=== PATIENT | female | born 1955 | race Caucasian/White ===

== ENCOUNTER → 2018-07-15 07:56 | Outpatient (CLI) | payer SELFPAY ==
--- NOTE | 2018-07-15 08:04 | BI_ITS ---
MAMMOGRAPHY - BILATERAL SCREENING 3-D TOMOSYNTHESIS REASON FOR EXAM: Female, 63 years old. Bilateral Screening 3-D tomosynthesis PERTINENT HISTORY: No significant family history. TECHNIQUE: 2-D mammograms and 3-D Tomosynthesis of the breast (s) were performed. CAD was performed. COMPARISON: 2017 FINDINGS: The breast composition is composed of scattered fibroglandular density. Scattered benign calcifications are seen. No dense spiculated masses or suspicious microcalcifications are identified. No architectural distortion is identified. There is no skin thickening or retraction. There has been no significant change since the prior study. BI/SCREENING MAMM (CAD), BILAT IMPRESSION: No mammographic signs of malignancy. Routine yearly mammograms recommended. ASSESSMENT CATEGORY: BIRADS Category 2: Benign. A letter regarding these results will be sent to the patient by the facility within 30 days. FOLLOW UP RECOMMENDATION: Yearly follow up mammogram recommended. (A) Approximately 10% of breast cancers are not detected by mammography. A normal mammogram should not delay biopsy of a clinically suspicious abnormality. Electronically Signed: Nnamdi Monzon MD at 8:59 EDT , Service support ,
== END ==
PROVIDERS: Family Provider Nurse Practitioner Family; PCP Nurse Practitioner Family; Referring Provider Nurse Practitioner Family; Visit Provider Nurse Practitioner Family
DX: Z12.31 Encounter for screening mammogram for malignant neoplasm of breast (principal)
CPT/HCPCS: 77063; 77067

== ENCOUNTER → 2022-10-09 | Outpatient (CLI) | payer MEDICARE, OTHER, SELFPAY ==
--- NOTE | 2022-10-09 07:59 | BI_ITS ---
MAMMOGRAPHY - BILATERAL SCREENING 3-D TOMOSYNTHESIS REASON FOR EXAM: Female, 67 years old. Routine screening PERTINENT HISTORY: No significant family history. TECHNIQUE: 2-D mammograms and 3-D Tomosynthesis of the breast (s) were performed. CAD was performed. COMPARISON: 2017 FINDINGS: The breast composition is composed of scattered fibroglandular density. Scattered benign punctate calcifications are seen. No dense spiculated masses or suspicious microcalcifications are identified. No architectural distortion is identified. There is no skin thickening or retraction. There has been no significant change since the prior study. BI/SCRN MAMM (CAD)W/ELIZABETH BILAT IMPRESSION: No mammographic signs of malignancy. Routine yearly mammograms recommended. ASSESSMENT CATEGORY: BIRADS Category 1: Negative. A letter regarding these results will be sent to the patient by the facility within 30 days. FOLLOW UP RECOMMENDATION: Yearly follow up mammogram recommended. (A) Approximately 10% of breast cancers are not detected by mammography. A normal mammogram should not delay biopsy of a clinically suspicious abnormality. Electronically Signed: Nnamdi Monzon MD at 9:02 EDT ,
== END | disposition home or self-care (01) ==
LOC: OPBI 07:57
PROVIDERS: PCP Nurse Practitioner Family; Referring Provider Nurse Practitioner Family; Visit Provider Nurse Practitioner Family
DX: Z12.31 Encounter for screening mammogram for malignant neoplasm of breast (principal)
CPT/HCPCS: 77063; 77067

== ENCOUNTER → 2022-12-24 | Outpatient (CLI) | payer MEDICARE, OTHER, SELFPAY ==
[2022-12-24 13:28] LABS: Thyroid Stim Hormone (TSH) 0.81 uIU/mL (0.358-3.74)
== END | disposition home or self-care (01) ==
LOC: LAB 12:01
PROVIDERS: PCP Nurse Practitioner Family; Referring Provider Internal Medicine Cardiovascular Disease; Visit Provider Internal Medicine Cardiovascular Disease
DX: E78.5 Hyperlipidemia, unspecified (principal)
CPT/HCPCS: 36415; 84443

== ENCOUNTER → 2023-01-04 | Outpatient (CLI) | payer MEDICARE, OTHER, SELFPAY | END | disposition home or self-care (01) | LOC: PSN 09:51 | PROVIDERS: PCP Nurse Practitioner Family; Referring Provider Internal Medicine Cardiovascular Disease; Visit Provider Internal Medicine Cardiovascular Disease | DX: I49.1 Atrial premature depolarization (principal); I07.1 Rheumatic tricuspid insufficiency; I34.0 Nonrheumatic mitral (valve) insufficiency; I10 Essential (primary) hypertension | CPT/HCPCS: 93225; 93226 ==

== ENCOUNTER → 2023-01-13 | Outpatient (CLI) | payer MEDICARE, OTHER, SELFPAY ==
--- NOTE | 2023-01-13 06:54 | ECHOD_ITS ---
Reason For Study: NON RHEUMATIC MITRAL VALVE INSUFFIENCY Procedure This was a 2D Doppler, Color Flow transthoracic echocardiogram. Exam performed in department. Left Ventricle Normal size and thickness. The left ventricular ejection fraction is 65 %. Normal diastology for age. Right Ventricle Normal right ventricle. Atria The left and right atria are normal. Mitral Valve Trivial mitral valve insufficiency. Tricuspid Valve Trivial tricuspid valve insufficiency. Normal pulmonary artery pressure. Aortic Valve Trisinus/trileaflet aortic valve. Trivial aortic valve insufficiency. Pulmonic Valve The pulmonic valve is not well visualized. Great Vessels Normal sized aortic root. Pericardium/Pleural No pericardial effusion. MMode/2D Measurements & Calculations LVIDd: 4.7 cm IVSd: 0.82 cm Ao root diam: 3.1 cm LVIDs: 3.1 cm LVPWd: 0.83 cm RVDd: 3.3 cm FS: 33.3 % LAV(MOD-bp): 52.0 ml LVAd ap4: 28.3 cm2 LVAd ap2: 16.6 cm2 LAV(MOD-bp) Indexed: 27.8 ml/m2 LVLd ap4: 7.5 cm LVLd ap2: 6.2 cm LAV(MOD-sp2): 52.1 ml EDV(MOD-sp4): 87.5 ml EDV(MOD-sp2): 36.0 ml LAV(MOD-sp4): 52.4 ml EDV(sp4-el): 90.7 ml EDV(sp2-el): 37.7 ml LVAs ap4: 14.4 cm2 LVAs ap2: 9.1 cm2 LVLs ap4: 6.4 cm LVLs ap2: 5.7 cm ESV(MOD-sp4): 29.0 ml ESV(MOD-sp2): 13.5 ml ESV(sp4-el): 27.8 ml ESV(sp2-el): 12.4 ml EF(MOD-sp4): 66.8 % EF(MOD-sp2): 62.5 % EF(sp4-el): 69.4 % SV(MOD-sp4): 58.4 ml SV(MOD-sp2): 22.5 ml SV(sp4-el): 63.0 ml LA dimension(2D): 4.0 cm LA A4 area: 19.8 cm2 RA A4 area: 14.4 cm2 TAPSE: 1.7 cm Time Measurements MV dec time: 0.25 sec Doppler Measurements & Calculations MV E max trey: 81.5 cm/sec Lat Peak E' Trey: 11.7 cm/sec Med Peak E' Trey: 10.9 cm/sec MV A max trey: 82.3 cm/sec E/E' lat: 7.0 E/E' med: 7.4 MV E/A: 0.99 MV V2 max: 106.6 cm/sec MV P1/2t max trey: 97.9 cm/sec Ao V2 max: 201.4 cm/sec MV max P.5 mmHg MV P1/2t: 75.6 msec Ao max P.4 mmHg MV V2 mean: 59.1 cm/sec MV dec slope: 379.5 cm/sec2 Ao V2 mean: 147.1 cm/sec MV mean P.7 mmHg Ao mean P.7 mmHg MV V2 VTI: 30.8 cm MVA(P1/2t): 2.9 cm2 Ao V2 VTI: 46.7 cm AV (velocity ratio): 0.55 LV V1 max: 122.0 cm/sec PA V2 max: 111.2 cm/sec TR max trey: 215.2 cm/sec LV V1 max P.1 mmHg PA V2 mean: 80.1 cm/sec TR max P.5 mmHg LV V1 mean P.6 mmHg LV V1 mean: 90.6 cm/sec LV V1 VTI: 25.8 cm ECHO/Echo Complete Interpretation Summary The left ventricular ejection fraction is 65 %. Ordering Physician: Ning Yates Referring Physician: Ward Anders Performed By: Mary Wellington, LAURYNCS, RVT
--- NOTE | 2023-01-13 12:58 | STRESSREP_ITS ---
Stress Test Report Date: 01/13/2023 Procedure: Pharmacologic stress nuclear imaging study Indications: Arrhythmia Consent: Per the patient Procedure: The patient underwent pharmacologic (Regadenoson 0.4mg ) evaluation with a peak heart rate of 106 beats per minute (68%predicted maximal heart rate) and a peak blood pressure of 132/92 mmHg. The baseline ECG demonstrated sinus rhythm. The peak pharmacologic ECG demonstrated no ischemic changes. PACs noted at rest as well as during infusion. There was no complaint of chest discomfort during pharmacologic infusion or recovery. The patient was injected with 14.2 millicuries of technetium 99m Cardiolite and subsequently rest SPECT Cardiolite nuclear imaging was obtained in the horizontal long, vertical long, and short axis views. The patient underwent pharmacologic (Regadenoson) evaluation. The patient was injected with 45.0 millicuries of technetium 99m Cardiolite and subsequently stress SPECT Cardiolite nuclear imaging was obtained in the horizontal long, vertical long, and short axis views. A gated Cardiolite study at peak stress was obtained. The examination was stopped secondary to completion of protocol. Rest and stress SPECT Cardiolite nuclear imaging status post realignment, normalization, and attenuation correction demonstrate no fixed or reversible perfusion defect. There is end systolic thickening and brightening. The gated Cardiolite study demonstrates myocardial thickening and inward wall motion. The reported LVEF is 84%. Impression: 1. Pharmacologic (Regadenoson) evaluation 2. Peak pharmacologic ECG with no ischemic changes. 3. PACs noted at rest as well as during and after infusion. 5. Rest and stress SPECT Cardiolite nuclear imaging demonstrate relative uniform tracer uptake and myocardial perfusion appearing within normal limits. 6. The gated Cardiolite study reports an LVEF of 84%. This note was generated with [employer] software. It may contain incorrect words, spelling, and punctuation that were not noted in checking the note before signing.
== END | disposition home or self-care (01) ==
LOC: CVS 06:54
PROVIDERS: PCP Nurse Practitioner Family; Referring Provider Internal Medicine Cardiovascular Disease; Visit Provider Internal Medicine Cardiovascular Disease
DX: R94.31 Abnormal electrocardiogram [ECG] [EKG] (principal); I34.0 Nonrheumatic mitral (valve) insufficiency
CPT/HCPCS: 78452; 93017; 93306; A9500; A4216; J2785

== ENCOUNTER 2023-04-08 17:10 | Emergency (ER) | payer MEDICARE, OTHER, SELFPAY ==
[2023-04-08 17:11] VITALS: BP 145/87; PULSE 61; RESP 20; TEMP 35.9; O2SAT 98; BMI 37.1
--- OUTSIDE RECORDS SUMMARY | 2023-04-08 18:12 | XMS RPT_ITS | CCD ---
Author Name Unknown Address [facility]ly [facility] [place] [address] Organization [facility] Care Team Providers Care Private Sector Executive Name Role Phone ZO PAUL APRN, CNP Primary Care [facility] ZO PAUL APRN, CNP Attending U navailable MERY CARRASCO - HAKEEM, ZO Garibay Primary Care U navailable MERY CARRASCO - HAKE[place], ZO Garibay Attending U navailable MERY CARRASCO - HAKEEM, ZO Garibay Primary Care U navailable MERY LUNA - HAKEEM, ZO Garibay Attending U navailable MERY CARRASCO - HAKEEM, ZO Garibay Primary Care U navailable Medications Current Medications Medication Drug Class(es) Dates Sig (Normalized) Sig (Original) Calcium, Magnesium and Zinc oral tablet (3 sources) Start: 02-02-2019 take 1 tablet by mouth once daily Calcium, Magnesium and Zinc oral tablet Dose = 1 tab(s), Oral, qDay, # 30 tab(s), 0 Refill(s) Start Date: 02/02/19 Status: Ordered latanoprost 0.05 mg/ml ophthalmic solution (4 sources) Prostaglandin Analog Start: 05-23-2021 latanoprost 0.005% ophthalmic solution 0 Refill(s) Start Date: 05/23/21 Status: Ordered 12 hr timolol 5 mg/ml ophthalmic solution (5 sources) beta-Adrenergic Srinivasan Start: 02-02-2019 take 1 dose into the eye(s) twice daily timolol maleate 0.5% ophthalmic solution Dose = 1 drop(s), Eyes, both, BID, # 15 mL, 0 Refill(s) Start Date: 02/02/19 Status: Ordered Completed/Discontinued Medications Medication Drug Class(es) Dates Sig (Normalized) Sig (Original) ergocalciferol 1.25 mg oral capsule (5 sources) Provitamin D2 Compound Start: 06-02-2022 End: 11-29-2022 ergocalciferol 50,000 intl units (1.25 mg) oral capsule Dose : 50,000 International_Unit = 1 cap(s), Oral, qWeek, # 13 cap(s), 1 Refill(s), Pharmacy: [id number], Vitamin D deficiency, 151.5, cm, 06/02/22 8:31:00 EDT, Height, kg, 06/02/22 8:31:00 EDT, Dosing Weight Start Date: 06/02/22 Stop Date: 11/29/22 Status: Ordered Problems Active Problems Problem Classification Problem Date Documented Da te Episodic/Chronic Cardiac dysrhythmias (5 sources) Sinus bradycardia 11-15-2020 Episodic Diabetes mellitus without complication (7 sources) Impaired fasting glycemia; Translations: [Impaired fasting glucose] Onset: 05-21-2022 01-30-2019 Episodic Disorders of lipid metabolism (7 sources) Hyperlipidemia; Translations: [Hyperlipidemia, unspecified] Onset: 05-21-2022 02-02-2019 Chronic Essential hypertension (7 sources) Hypertensive disorder; Translations: [Essential (primary) hypertension] Onset: 11-13-2021 02-02-2019 Chronic Heart valve disorders (10 sources) Mitral valve regurgitation; Translations: [Tricuspid valve regurgitation] 11-15-2020 Chronic Malaise and fatigue (5 sources) Fatigue 01-30-2019 Episodic Nutritional deficiencies (7 sources) Vitamin D deficiency; Translations: [Vitamin D deficiency, unspecified] Onset: 11-13-2021 01-30-2019 Chronic Other bone disease and musculoskeletal deformities (1 source) Osteopenia 10-06-2022 Episodic Past or Other Problems Problem Classification Problem Date Documented Da te Episodic/Chronic Nutritional deficiencies (2 sources) Other specified nutritional deficiencies; Translations: [Other specified nutritional deficiencies] Onset: 05-21-2022 Episodic Results Test Name Value Interpretation Reference Range Facil ity Encounters Encounter Date Encounter Type Care Provider Facility Start: 12-03-2022 End: 12-07-2022 Outreach Lab OZ ORDONEZ GARMENT FOLDER - PELLETISING EXTRUDER OPERATOR [facility] Start: 10-05-2022 End: 10-06-2022 ambulatory ZO ORDONEZ GARMENT FOLDER - PELLETISING EXTRUDER OPERATOR Facility:[facility] Start: 10-05-2022 End: 10-05-2022 Patient encounter procedure ZO ORDONEZ GARMENT FOLDER - PELLETISING EXTRUDER OPERATOR [facility] Start: 05-21-2022 End: 05-26-2022 ambulatory ZO ORDONEZ GARMENT FOLDER - PELLETISING EXTRUDER OPERATOR Facility:[facility] Start: 05-21-2022 End: 05-25-2022 Outreach Lab ZO ORDONEZ GARMENT FOLDER - PELLETISING EXTRUDER OPERATOR [facility] Start: 11-13-2021 End: 11-18-2021 ambulatory ZO ORDONEZ GARMENT FOLDER - PELLETISING EXTRUDER OPERATOR Facility:[facility] Start: 11-13-2021 End: 11-17-2021 Outreach Lab ZO ORDONEZ GARMENT FOLDER - PELLETISING EXTRUDER OPERATOR [facility] Start: 05-15-2021 End: 05-19-2021 Outreach Lab ZO ORDONEZ GARMENT FOLDER - PELLETISING EXTRUDER OPERATOR [facility] Procedures Date Procedure Procedure Detail Performing Clinician Start: 03-22-1979 Cholecystectomy ZO ORDONEZ GARMENT FOLDER - PELLETISING EXTRUDER OPERATOR Payers Date Payer Category Payer Medicare [id number] 2022 Unknown [id number] 2021 Self-pay 1955 Unknown [id number] 1955 Unknown [id number] 1955 Unknown [id number] Social History Date Type Detail Facility Start: 01-30-2019 Never smoked t obacco (finding) [facility] Sex Assigned At Female [facility] Clinical Note 10-05-2022 Note Date & Type Note Facility 10-05-2022 Note ORIGINAL EXAMINATION: BONE DENSITOMETRY 10/05/2022 12:09 pm TECHNIQUE: A bone density dual x-ray absorptiometry (DEXA) scan was performed of the lumbar spine and left hip. COMPARISON: None. HISTORY: ORDERING SYSTEM PROVIDED HISTORY: Reason for Exam: Osteoporosis Screening FINDINGS: T Score Left Femoral Neck:-1.9. BMD left Femoral Neck: 0.640 (g/cm2) T Score Left Hip:-1.0. BMD left Hip: 0.822 (g/cm2) T Score Lumbar Spine:-2.0. BMD lumbar Spine: 0.831 (g/cmd2) FRAX score: 10 year probability of fracture Major osteoporotic fracture 9.3 % Hip fracture 1.2 % IMPRESSION: Osteopenia by WHO criteria. I have personally reviewed the images of this examination and agree with the resident's findings and interpretation. Interpreted by: Eleonora Guan Preliminary Report By: Ran Simon Electronically signed By Eleonora Guan Dictated Date: 10/05/2022 1:17:49 PM Prelim Date: 10/05/2022 5:04:16 PM Sign Date: 10/05/2022 5:04:16 PM Ordering Provider: ZO ORDONEZ [facility] Clinical Note 10-05-2022 Note Date & Type Note Facility 10-05-2022 Note ORIGINAL EXAMINATION: BONE DENSITOMETRY 10/05/2022 12:09 pm TECHNIQUE: A bone density dual x-ray absorptiometry (DEXA) scan was performed of the lumbar spine and left hip. COMPARISON: None. HISTORY: ORDERING SYSTEM PROVIDED HISTORY: Reason for Exam: Osteoporosis Screening FINDINGS: T Score Left Femoral Neck:-1.9. BMD left Femoral Neck: 0.640 (g/cm2) T Score Left Hip:-1.0. BMD left Hip: 0.822 (g/cm2) T Score Lumbar Spine:-2.0. BMD lumbar Spine: 0.831 (g/cmd2) FRAX score: 10 year probability of fracture Major osteoporotic fracture 9.3 % Hip fracture 1.2 % IMPRESSION: Osteopenia by WHO criteria. I have personally reviewed the images of this examination and agree with the resident's findings and interpretation. Interpreted by: Eleonora Guan Preliminary Report By: Ran Simon Electronically signed By Eleonora Guan Dictated Date: 10/05/2022 1:17:49 PM Prelim Date: 10/05/2022 5:04:16 PM Sign Date: 10/05/2022 5:04:16 PM Ordering Provider: ZO ORDONEZ [facility] Evaluation + Plan note Laboratory Note Date & Type Note Facility Evaluation + Plan note Future Appointments Appointment Date:05/23/2021 09:40:00 AM Scheduled Provider:ZO ORDONEZ APRN, CNP Location:[facility] Appointment Type: OV Follow Up Future Scheduled TestsComplete Blood Count 11/14/20Lipid Profile 11/14/20Lipid Profile 05/18/21Vitamin D Level 11/14/20Vitamin D Level 05/18/21Complete Metabolic Panel 11/14/20Complete Metabolic Panel 05/18/21 [facility] Evaluation + Plan note LaboratoryRadiology Note Date & Type Note Facility Evaluation + Plan note Future Appointments Appointment Date:11/21/2021 09:00:00 AM Scheduled Provider:ZO ORDONEZ APRN, CNP Location:[facility] Appointment Type:PC OV Follow Up Future Scheduled TestsComplete Blood Count 11/14/20Lipid Profile 11/14/20Lipid Profile 05/18/21Microalbumin Level Urine 11/23/21Vitamin D Level 11/14/20Vitamin D Level 05/18/21Complete Metabolic Panel 11/14/20Complete Metabolic Panel 05/18/21MA Mammo Screening Bilateral w/ Phil 05/23/21 [facility] Evaluation + Plan note Laboratory Note Date & Type Note Facility Evaluation + Plan note Future Appointments Appointment Date:05/29/2022 08:40:00 AM Scheduled Provider:MERY, ZO D GARMENT FOLDER - PELLETISING EXTRUDER OPERATOR Location:[facility] Appointment Type:PC OV Follow Up Future Scheduled TestsMicroalbumin Level Urine 11/23/21Vitamin D Level 05/18/21Complete Metabolic Panel 05/18/21 [facility] Evaluation + Plan note LaboratoryRadiology Note Date & Type Note Facility Evaluation + Plan note Future Appointments Appointment Date:12/03/2022 08:30:00 AM Scheduled Provider: Location:[facility] Appointment Type:PC Nurse Lab Appointment Date:12/10/2022 09:00:00 AM Scheduled Provider:ZO ORDONEZ APRN - HAKEEM Location:[facility] Appointment Type:PC OV Follow Up Future Scheduled TestsLipid Profile 12/03/22Microalbumin Level Urine 12/03/22Microalbumin Level Urine 11/23/21Vitamin D Level 12/03/22Complete Metabolic Panel 12/03/22MA Mammo Screening Bilateral w/ Phil 09/14/22 [facility] Evaluation + Plan note Laboratory Note Date & Type Note Facility Evaluation + Plan note Future Appointments Appointment Date:12/10/2022 09:00:00 AM Scheduled Provider:ZO ORDONEZ APRN - PELLETISING EXTRUDER OPERATOR Location:[facility] Appointment Type:PC OV Follow Up Future Scheduled TestsMicroalbumin Level Urine 12/03/22Microalbumin Level Urine 11/23/21 [facility] Hospital course Narrative Note Date & Type Note Facility Hospital course Narrative No data available for this section [facility] Hospital Discharge instructions Note Date & Type Note Facility Hospital Discharge instructions No data available for this section [facility] Progress note Note Date & Type Note Facility Progress note No data available for this section [facility] Summary Purpose Family History No Family History Records FoundNo Family History Records FoundNo Family History Records Found No data available for this section Advance Directives No Advanced Directives Records FoundNo Advanced Directives Records FoundNo Advanced Directives Records Found Additional Source Comments INFORMATION SOURCE (unrecogn ized section and content) DATE CREATED AUTHOR AUTHOR'S ORGANIZ ATION 11/12/2019 [facility] DATE CREATED AUTHOR AUTHOR'S ORGANIZ ATION 10/06/2022 [facility] Care Team (unrecognized sect ion and content) Care Team Personnel Name: ZO ORDONEZ APRN - PELLETISING EXTRUDER OPERATOR Position: [facility] Nurse Member Role: Primary Care Physician Address: Address: [address] [place] [address] Care Team Related Persons Name: NAFISA HAIR Care Team Personnel Name: ZO ORDONEZ GARMENT FOLDER - PELLETISING EXTRUDER OPERATOR Position: [facility] [employer] Architect Member Role: Primary Care Physician Address: Address: [address] [place] [address] Care Team Related Persons Name: NAFISA HAIR Patient Care team informatio n (unrecognized section and content) Care Team Personnel Name: ZO ORDONEZ GARMENT FOLDER - PELLETISING EXTRUDER OPERATOR Position: [facility] [employer] Architect Member Role: Primary Care Physician Address: Address: [address] [place] [address] Care Team Related Persons Name: NAFISA HAIR Care Team Personnel Name: ZO ORDONEZ APRN - PELLETISING EXTRUDER OPERATOR Position: [facility] [employer] Architect Member Role: Primary Care Physician Address: Address: [address] [place] [address] Care Team Related Persons Name: NAFISA HAIR FOR RECORDS PERTAINING TO PATIENTS WHO ARE OR HAVE BEEN ENROLLED IN A CHEMICAL DEPENDENCY/SUBSTANCEABUSE PROGRAM, SOME INFORMATION MAY BE OMITTED. This clinical summary was aggregated from multiple sources. Caution should be exercised in using it in the provision of clinical care. This summary normalizes information from multiple sources, and as a consequence, information in this document may materially change the coding, format and clinical context of patient data. In addition, data may be omitted in some cases. CLINICAL DECISIONS SHOULD BE BASED ON THE PRIMARY CLINICAL RECORDS. [employer] [facility]. provides no warranty or guarantee of the accuracy or completeness of information in this document.
--- NOTE | 2023-04-08 18:53 | EDS_ITS ---
HPI History of Present Illness Chief Complaint: Shortness of Breath Narrative Narrative: 68-year-old female presenting with shortness of breath for about a week. She states she can normally climb stairs and do her activities of daily living without any difficulty and she still able to accomplish these but she feels more short of breath than usual. She denies any chest pain. She states the has had recent contact with COVID-19 but has not had fevers, chills, cough. Patient is eating and drinking normally. She making normal urine and stool. She states that she went to her PCPs office today to have her blood pressure checked because she said it was in the 180s systolic at home and they rechecked it at the office and it was still high. They recommended that she take her metoprolol and her lisinopril and go home but she noted that her blood pressure still high so she came to the ER for evaluation. [facility] Medical History Chronic fatigue Essential (primary) hypertension Mitral valve regurgitation Mixed hyperlipidemia Tricuspid regurgitation Vitamin D deficiency Home Medications ergocalciferol (vitamin D2) 1,250 mcg (50,000 unit) capsule 1,250 mcg PO QWEEK 12/18/22 [History Last Taken Unknown] latanoprost 0.005 % eye drops 1 drp ophthalmic (eye) DAILY 12/18/22 [History Last Taken Unknown] lisinopril 5 mg tablet 5 mg PO DAILY 12/18/22 [History Last Taken Unknown] rosuvastatin 5 mg tablet 5 mg PO DAILY 12/18/22 [History Last Taken Unknown] timolol 0.5 % eye drops 1 drp ophthalmic (eye) BID 12/18/22 [History Last Taken Unknown] brimonidine 0.2 % eye drops 1 drp ophthalmic (eye) BID 12/24/22 [History Last Taken Unknown] metoprolol tartrate 25 mg tablet 25 mg PO BID #60 tabs 01/12/23 [Rx Last Taken Unknown] Allergy/AdvReac Type Severity Reaction Status Date / Time No Known Allergies Allergy Verified 12/24/22 11:00 Family History Sister Diabetes Heart disease Seizures Father Heart disease CVA (cerebral vascular accident) Mother Hypertension Osteoporosis Surgical History History of cholecystectomy Social History (Updated 04/08/23 @ 20:20 by Mónica Kessler) household members: family Smoking Status: Never smoker alcohol intake: never caffeine: Yes Type: coffee Number of servings: 1 ROS ROS ED Constitutional Constitutional ED: Denies chills, fever(s) or sweats Eyes Eyes: Denies blurry vision or change in vision ENT ENT ED: Denies ear pain or sore throat Cardiovascular Cardiovascular: Denies chest pain, palpitations or racing heartbeat Respiratory/Chest Respiratory/Chest: Denies cough, dyspnea or sputum Gastrointestinal Gastrointestinal: Denies abdominal pain, constipation, diarrhea, nausea or vomiting Genitourinary Genitourinary ED: Denies dysuria, hematuria or urinary frequency Musculoskeletal Musculoskeletal: Denies arthralgias, myalgias or neck pain Integumentary Denies abscess, Abrasions or rash Neurologic Neurologic: Denies headache(s), paresthesias or weakness Psychiatric Psychiatric: Denies anxiety, depression, suicidal ideation or suicidal thoughts Endocrine Endocrinology: Denies polydipsia or polyuria EXAM Physical Exam Const Vital Signs: 04/08/23 17:11 04/08/23 19:10 04/08/23 20:15 Temperature 96.7 F L 98.1 F Temperature Source Temporal Temporal Pulse Rate 61 65 Pulse Rate [Lying] 76 Pulse Rate [Sitting (for 1 minute prior to obtaining)] 66 Pulse Rate [Standing (for 1 minute prior to obtaining)] 76 Respiratory Rate 20 H 18 Respiratory Effort Respiratory Depth Respiratory Pattern Blood Pressure 145/87 H 115/88 H Blood Pressure [Lying] 134/81 H Blood Pressure [Sitting (for 1 minute prior to obtaining)] 130/71 H Blood Pressure [Standing (for 1 minute prior to obtaining)] 124/77 H Blood Pressure Mean 106 97 Blood Pressure Mean [Lying] 98 Blood Pressure Mean [Sitting (for 1 minute prior to obtaining)] 90 Blood Pressure Mean [Standing (for 1 minute prior to obtaining)] 92 Pulse Ox 98 94 Oxygen Delivery Method Room Air Room Air 04/08/23 20:23 04/08/23 18:53 Temperature Temperature Source Pulse Rate Pulse Rate [Lying] Pulse Rate [Sitting (for 1 minute prior to obtaining)] Pulse Rate [Standing (for 1 minute prior to obtaining)] Respiratory Rate Respiratory Effort Normal Respiratory Depth Normal Respiratory Pattern Normal Blood Pressure Blood Pressure [Lying] Blood Pressure [Sitting (for 1 minute prior to obtaining)] Blood Pressure [Standing (for 1 minute prior to obtaining)] Blood Pressure Mean Blood Pressure Mean [Lying] Blood Pressure Mean [Sitting (for 1 minute prior to obtaining)] Blood Pressure Mean [Standing (for 1 minute prior to obtaining)] Pulse Ox Oxygen Delivery Method Room Air Room Air General Appearance ED: Negative for pallor HEENT Reports normocephalic and head/scalp atraumatic Eyes PERRL and EOMs intact bilaterally Neck no lymphadenopathy and supple Chest Wall inspection of chest normal and palpation of chest normal Resp normal respiratory effort and clear to auscultation bilaterally Auscultation: Negative for rales, rhonchi or wheezes Cardio regular rate and regular rhythm Narrative: Deferred Extremity normal to inspection General Extremety ED: Yes tenderness Neuro oriented x3 and CN's II-XII intact bilaterally Sensorium / Orientation: alert Motor Exam: strength 5/5 throughout Psych mental status grossly normal Attitude: No agitated Skin no rashes or lesions noted and no wounds General Skin Exam: Negative for jaundice or pallor MDM MDM MDM Narrative Medical decision making narrative: 68-year-old female with shortness of breath. She states her blood pressure has been high but today in the ER at 145/87. She has not missed any doses of her lisinopril nor has she missed her metoprolol doses. He is on metoprolol for PACs. She started this in December and feels like it has been working really well but for the last week she has had some shortness of breath. Her primary care physician was concerned that it was a side effect of the metoprolol which occurred 3 months after starting it. Patient has no chest pain. Differential includes ACS, CHF, pneumonia, COVID, influenza, RSV, dehydration, anemia, electro normalities, anxiety. CBC will be obtained to assess white blood cell count, hemoglobin, platelets. BMP to assess renal function, electrolytes, glucose. High-sensitivity troponin EKG to assess for ischemia/dysrhythmia. BNP to assess for CHF. D-dimer to assess for PE. CBC unremarkable. BMP shows slight elevation creatinine 1.5 without a comparison. High-sensitivity troponin is 6. BNP 90. EKG on my interpretation shows a normal sinus rhythm with a ventricular rate of 70/min with PACs. No STEMI. Chest x-ray my interpretation shows no acute process. Patient's blood pressure is now 124/77. Orthostatic vital signs are negative. I feel this point the patient stable for discharge. COVID-19 testing was also negative. Impression: 1. Dyspnea 2. History of hypertension 3. Anxiety Lab Data Attestation: I reviewed the patient's lab results. Labs: Laboratory Results - last 24 hr 04/08/23 04/08/23 19:01 19:46 WBC 5.8 RBC 4.83 Hgb 14.2 Hct 44.7 MCV 92.5 MCH 29.4 MCHC 31.8 L RDW Std Deviation 39.4 RDW Coeff of Marcella 11.7 Plt Count 147 L MPV 10.3 Immature Gran % (Auto) 0.200 Neut % (Auto) 65.3 Lymph % (Auto) 21.2 [place] % (Auto) 9.0 Eos % (Auto) 3.1 Baso % (Auto) 1.2 H Absolute Neuts (auto) 3.8 Absolute Lymphs (auto) 1.23 Nucleated RBC % 0 Platelet Estimate ADEQUATE RBC Morphology N CHROM Anisocytosis RARE Macrocytosis RARE D-Dimer Quant (PE/DVT) 0.52 H* Sodium Cancelled 140 Potassium Cancelled 4.5 Chloride Cancelled 107 Carbon Dioxide Cancelled 30.0 Anion Gap Cancelled 3 L BUN Cancelled 24 H Creatinine Cancelled 1.15 H Estim Creat Clear Calc Cancelled 48.90 Est GFR (MDRD) Af Amer Cancelled 61 Est GFR (MDRD) Non-Af Cancelled 50 L BUN/Creatinine Ratio Cancelled 20.9 H Glucose Cancelled 111 H Calcium Cancelled 10.1 Troponin I High Sens Cancelled 6 B-Natriuretic Peptide 90.0 Radiography Diagnostic Testing: Clinical Impression(s) from Imaging Studies Chest X-Ray 04/08/23 19:00 IMPRESSION: Normal x-ray examination of the chest. Electronically Signed: Ward Angeles MD at 19:25 EST , Discharge Plan Triage Chief Complaint: Shortness of Breath ED Provider: Niranjan Siddiqi Dx/Rx/DC Orders Prescriptions: No Action ergocalciferol (vitamin D2) 1,250 mcg (50,000 unit) capsule 1,250 mcg PO QWEEK lisinopril 5 mg tablet 5 mg PO DAILY rosuvastatin 5 mg tablet 5 mg PO DAILY latanoprost 0.005 % drops 1 drp ophthalmic (eye) DAILY timolol 0.5 % drops 1 drp ophthalmic (eye) BID brimonidine 0.2 % drops 1 drp ophthalmic (eye) BID metoprolol tartrate 25 mg tablet 25 mg PO BID Qty: 60 11RF Primary Care Provider: Ward Anders NP Referrals: Ward Anders NP, CORPORATE PLANNING MANAGER-C [Primary Care Provider] - Disposition Disposition: Home, Self Care Capacity Legal Front Desk Coordinator Reflex Medical hold order details:: IF a medical hold is selected below, a suggested order for a MEDICAL HOLD will reflex upon signing the document. Next of kin: [place] law dictates a PRIORITY LIST for identifying legal decision-maker/legal next of kin in the following order (LNOK): 1st: The patient?s legal guardian, if any 2nd: The patient's spouse (if status is questionable, consult Risk Management) 3rd: The patient?s adult child(prakash) (majority, if multiple children) 4th: The patient?s parents 5th: The patient?s adult siblings (majority, if multiple children siblings)
--- NOTE | 2023-04-08 18:53 | EKG12_ITS ---
Test Reason : DYSRHYTHMIA Blood Pressure : / mmHG Vent. Rate : 070 BPM Atrial Rate : 127 BPM P-R Int : 150 ms QRS Dur : 074 ms QT Int : 388 ms P-R-T Axes : 000 -09 013 degrees QTc Int : 419 ms Sinus tachycardia with Blocked Premature atrial complexes Otherwise normal ECG Confirmed by MARY JO MADRIGAL, RAIN ([id number]), barrel raiser helper LYNETTE GARLAND ([id number]) on 04/09/2023 10:28:36 AM Referred By: JEFF Confirmed By:RAIN CAMARGO MD
--- NOTE | 2023-04-08 19:00 | RAD_ITS ---
STUDY: X-RAY CHEST REASON FOR EXAM: Female, 68 years old. chest pain TECHNIQUE: Single AP portable view of the chest. COMPARISON: None. FINDINGS: The lungs are clear and expanded. There is no demonstrated pleural abnormality. Normal size heart. Normal mediastinum and cee. Normal visualized pulmonary arteries. Normal visualized aortic arch and descending thoracic aorta. Normal visualized thoracic spine. Normal visualized ribs, clavicles, and shoulders. There is no demonstrated abnormality of the visualized soft tissue structures of the upper abdomen. RAD/Chest 1 View (Portable) IMPRESSION: Normal x-ray examination of the chest. Electronically Signed: Ward Angeles MD at 19:25 [facility] ,
[2023-04-08 19:08] LABS: Absolute Lymphocyte Count 1.23 X10^3/uL (0.83-4.51); Absolute Neutrophil Count 3.8 X10^3/uL (2.0-7.7); Basophil# 0.07 X10^3/uL; Basophil% 1.2 % (0-1); Eosinophil# 0.18 X10^3/uL; Eosinophils% 3.1 % (0-5); Hematocrit 44.7 % (37-47); Hemoglobin 14.2 g/dL (12.0-15.0); Lymphocyte # 1.23 X10^3/ul (0.83-4.51); Lymphocyte % 21.2 % (19-41); Mean Corp Hgb Conc 31.8 g/dL (32-36); Mean Corpuscular Hgb 29.4 pg (27.0-32.0); Mean Corpuscular Volume 92.5 fL (81-99); Mean Platelet Vol. 10.3 fl (6.2-12.0); Monocyte# 0.52 X10^3/uL; NRBC Flagged by Analyzer 0 % (0-5); Neutrophil # 3.79 X10^3/uL (2.7-7.7); Neutrophil % 65.3 % (47-70); POSITIVE COUNT YES; Platelet Count 147 K/mm3 (150-450); RBC Distribution Width CV 11.7 % (11.6-14.6); RBC Distribution Width SD 39.4 fl (35.1-43.9); Red Blood Count 4.83 M/mm3 (4.2-5.4); White Blood Count 5.8 K/mm3 (4.4-11.0)
[2023-04-08 19:10] VITALS: BP 115/88; PULSE 65; RESP 18; TEMP 36.7; O2SAT 94
[2023-04-08 19:12] LABS: Differential Indicated SCAN CRITERIA MET
[2023-04-08 19:15] LABS: Anisocytosis RARE; Macrocytosis RARE; Platelet Estimate ADEQUATE (ADEQ); Red Cell Morphology N CHROM NORMAL (NORM C&C)
[2023-04-08 19:49] LABS: D-Dimer Quantitative (DVT/PE) 0.52 FEU/ug/m (0.27-0.49)
[2023-04-08 20:15] VITALS: BP 124/77; BP 130/71; BP 134/81; PULSE 66; PULSE 76
[2023-04-08 20:23] VITALS: O2SAT 98
[2023-04-08 20:25] LABS: Anion Gap 3 (5-15); BUN 24 mg/dL (7-18); BUN/Creat Ratio 20.9 RATIO (10-20); Calcium,Total 10.1 mg/dL (8.5-10.1); Chloride 107 mmol/L (98-107); Creatinine, Serum 1.15 mg/dL (0.55-1.02); EST Glomerular Filtration Rate 50 mL/min (>60); Est Glom Filt Rate - Afr Amer 61 mL/min (>60); Glucose 111 mg/dL (74-106); Potassium 4.5 mmol/L (3.5-5.1); Sodium Level 140 mmol/L (136-145); Troponin-I HS 6 pg/mL (3.0-54.0)
[2023-04-08 21:29] VITALS: BP 140/77; PULSE 62; RESP 21; TEMP 36.7; O2SAT 97
== END 2023-04-08 21:37 | disposition home or self-care (01) ==
PROVIDERS: Emergency Provider Student in an Organized Health Care Education/Training Program; PCP Nurse Practitioner Family; Visit Provider Student in an Organized Health Care Education/Training Program
DX: R06.00 Dyspnea, unspecified (principal); I10 Essential (primary) hypertension; F41.9 Anxiety disorder, unspecified; Z79.899 Other long term (current) drug therapy; Z11.52 Encounter for screening for COVID-19; E78.2 Mixed hyperlipidemia
CPT/HCPCS: 71045; 80048; 83880; 84484; 85025; 85379; 87631; 93005; 99283; J7040; A4216

== ENCOUNTER → 2023-10-15 | Outpatient (CLI) | payer MEDICARE, OTHER, SELFPAY ==
--- NOTE | 2023-10-15 12:26 | BI_ITS ---
MAMMOGRAPHY - BILATERAL SCREENING REASON FOR EXAM: Female, 68 years old. Routine annual screening examination. PERTINENT HISTORY: Non-contributory. TECHNIQUE: Digital bilateral breast elizabeth (3D mammographic acquisition) in the CC and MLO projections. 2-D mediolateral oblique (MLO) and craniocaudad (CC) views of both breasts were obtained. CAD: Full Field Digital Mammography with Computer Added Detection was performed. COMPARISON: Comparison is made with prior study dated October 09, 2022 and November 14, 2018. FINDINGS: Breast Composition: There are scattered areas of fibroglandular density. There are no dominant masses or suspicious calcifications. Stable bilateral punctate calcifications. More prominent in the right breast. No other significant abnormalities are identified. There has been no significant change since the prior study. BI/SCRN MAMM (CAD)W/ELIZABETH BILAT IMPRESSION: Stable bilateral screening mammogram. Yearly follow-up mammogram recommended. (A) ASSESSMENT CATEGORY: BIRADS Category 2: Benign. A letter regarding these results will be sent to the patient by the facility within 30 days. Approximately 10% of breast cancers are not detected by mammography. A normal mammogram should not delay biopsy of a clinically suspicious abnormality. [id number] Electronically Signed: Varghese Randolph MD at 13:35 EDT ,
== END | disposition home or self-care (01) ==
LOC: OPBI 12:25
PROVIDERS: PCP Nurse Practitioner Family; Referring Provider Nurse Practitioner Family; Visit Provider Nurse Practitioner Family
DX: Z12.31 Encounter for screening mammogram for malignant neoplasm of breast (principal)
CPT/HCPCS: 77063; 77067

== ENCOUNTER → 2023-11-18 | Outpatient (CLI) | payer MEDICARE, OTHER, SELFPAY | END | disposition home or self-care (01) | LOC: PSN 12:27 | PROVIDERS: PCP Nurse Practitioner Family; Referring Provider Physician Assistant Medical; Visit Provider Physician Assistant Medical | DX: I49.1 Atrial premature depolarization (principal); I10 Essential (primary) hypertension; E78.2 Mixed hyperlipidemia | CPT/HCPCS: 93225; 93226 ==

== ENCOUNTER 2024-04-04 11:49 | Outpatient (CLI) | payer MEDICARE, OTHER, SELFPAY ==
[2024-04-04 12:33] LABS: Hematocrit 43.4 % (37-47); Hemoglobin 14.2 g/dL (12.0-15.0); Mean Corp Hgb Conc 32.7 g/dL (32-36); Mean Corpuscular Hgb 30.3 pg (27.0-32.0); Mean Corpuscular Volume 92.7 fL (81-99); Mean Platelet Vol. 9.5 fl (6.2-12.0); Platelet Count 357 K/mm3 (150-450); RBC Distribution Width CV 11.8 % (11.6-14.6); RBC Distribution Width SD 39.9 fl (35.1-43.9); Red Blood Count 4.68 M/mm3 (4.2-5.4); White Blood Count 5.7 K/mm3 (4.4-11.0)
[2024-04-04 13:27] LABS: Anion Gap 2 (5-15); BUN 24 mg/dL (7-18); BUN/Creat Ratio 27.8 RATIO (10-20); Calcium,Total 9.8 mg/dL (8.5-10.1); Chloride 109 mmol/L (98-107); Creatinine, Serum 0.86 mg/dL (0.55-1.02); EST Glomerular Filtration Rate 70 mL/min (>60); Est Glom Filt Rate - Afr Amer 84 mL/min (>60); Glucose 146 mg/dL (74-106); Sodium Level 139 mmol/L (136-145)
== END 2024-04-04 23:59 | disposition home or self-care (01) ==
LOC: LAB 11:52
PROVIDERS: PCP Nurse Practitioner Family; Referring Provider Urology; Visit Provider Urology
DX: Z01.812 Encounter for preprocedural laboratory examination (principal); N20.0 Calculus of kidney; R31.0 Gross hematuria
CPT/HCPCS: 36415; 80048; 85027

== ENCOUNTER → 2024-11-10 | Outpatient (CLI) | payer MEDICARE, OTHER, SELFPAY ==
--- NOTE | 2024-11-10 08:19 | BI_ITS ---
EXAM: SCRN MAMM (CAD)W/ELIZABETH BILAT DATE: 11/10/2024 CLINICAL HISTORY: F, Age 69 y/o , SCREEN TECHNIQUE: SCRN MAMM (CAD)W/ELIZABETH BILAT COMPARISON: Prior exam(s) dated 10/15/2023, 10/09/2022, 07/15/2018. FINDINGS: TISSUE DENSITY: There are scattered areas of fibroglandular density. Bilateral Breast Mammographic Findings: No significant masses, calcifications or other abnormalities are identified. BI/SCRN MAMM (CAD)W/ELIZABETH BILAT IMPRESSION: There is no mammographic evidence of malignancy. OVERALL FINAL ASSESSMENT BI-RADS 1: NEGATIVE. RECOMMENDATION: Routine annual follow-up in 1 Year A letter with findings and recommendations will be mailed to the patient. Reading Location: [id number]
== END | disposition home or self-care (01) ==
LOC: OPBI 08:17
PROVIDERS: PCP Nurse Practitioner Family; Referring Provider Nurse Practitioner Family; Visit Provider Nurse Practitioner Family
DX: Z12.31 Encounter for screening mammogram for malignant neoplasm of breast (principal)
CPT/HCPCS: 77063; 77067